=== PATIENT | female | born 1990 | race Caucasian/White ===

== ENCOUNTER 2021-01-10 12:11 | Emergency (ER) | payer OTHER, SELFPAY ==
--- NOTE | ~2021-01-10 | XR_ITS ---
EXAMINATION: XR CHEST CLINICAL INFORMATION: Coughing COMPARISON: None TECHNIQUE: Portable upright AP view of the chest was obtained. FINDINGS: There are low lung volumes with inspiration to the posterior eighth intercostal space. The lungs are clear and there is no airspace consolidation or groundglass opacity or effusion. The costophrenic sulci are clear. The heart is normal in size. The vascularity is normal. The hilar and mediastinal contours are unremarkable. No visible acute bony abnormality. There are bilateral nipple piercings. XR/XR chest 1V IMPRESSION: Unremarkable examination.
[2021-01-10 12:53] VITALS: BP 106/69; PULSE 86; RESP 20; TEMP 37.1; O2SAT 100; BMI 43.4
--- NOTE | 2021-01-10 12:54 | ED_ITS ---
HPI - URI/Sore Throat General Chief Complaint: Upper Respiratory Symptoms Stated Complaint: cough fever Time Seen by Provider: 01/10/21 12:53 Related Data Allergies Allergy/AdvReac Type Severity Reaction Status Date / Time morphine [MORPHINE] Allergy Unknown I DONT Unverified 02/19/20 19:01 KNOW WHAT IM SAYING PMFSH Past Medical History Medical History Morbid obesity Social History Social History Advance Directives: No Advance Directives Information Provided: No Patient : No Physical Exam Vital Signs: Vital Signs: Last Vital Signs Temp 98.8 F 01/10/21 12:53 Pulse 86 01/10/21 12:53 Resp 20 01/10/21 12:53 BP 106/69 01/10/21 12:53 Pulse Ox 100 01/10/21 12:53 Body Mass Index 43.4 Course Course Course Narrative: patient presents to the ED for coughing for one week, sore throat, and fever. patient vaccinated against covid. Vital signs are stable. Covid swab/strep and chest xray ordered. MDM - URI/Sore Throat Lab Data Labs: Lab Results 01/10/21 01/10/21 Range/Units 12:52 12:54 Coronavirus (PCR) NEGATIVE (Negative) Influenza Type A (PCR) NEGATIVE (Negative) Influenza Type B (PCR) NEGATIVE (Negative) RSV RNA Qual (PCR) NEGATIVE (Negative) S. pyogenes GrpA CODY Positive A (Negative) Discharge Plan Discharge Clinical Impression: Upper respiratory infection Patient Disposition: Home, Self-Care Instructions: Upper Respiratory Infection (ED), COVID-19 (Coronavirus Disease 2019) (ED) Additional Instructions: Strict home quarantine for at least 1 week from the onset of symptoms. Please stay home until there is no fever for at least 24-48 hours. Referrals: Physician,Unknown [Primary Care Provider] - 2 days Stand Alone Forms: Work/School Release Interventions: ED Discharge Assessment Last Done: 01/10/21 13:45 Discharge Date/Time: 01/10/21 13:40 Print Language: New Zealander
--- NOTE | 2021-01-10 13:19 | ED.URI ---
HPI - URI/Sore Throat General Chief Complaint: Upper Respiratory Symptoms Stated Complaint: cough fever Time Seen by Provider: 01/10/21 12:53 History of Present Illness HPI Narrative: Patient is 30 years old presents today with coughing upper respiratory symptoms. Patient already had her coronavirus vaccine x2 over 2 months ago. No nausea no vomiting. No diarrhea. No change in smell or taste. Patient from home. Related Data Allergies Allergy/AdvReac Type Severity Reaction Status Date / Time morphine [MORPHINE] Allergy Unknown I DONT Unverified 02/19/20 19:01 KNOW WHAT IM SAYING Review of Systems Review of Systems: Constitutional: No Weight loss, No Fever, No Chills, No Night Sweats, No Fatigue, No Malaise ENT/Mouth: No Hearing loss, No Ear Pain, No Nasal Congestion, No Sinus Pain, No Hoarseness, No sore throat, No Rhinorrhea, No Swallowing Difficulty Eyes: No Eye Pain, No Swelling, No Redness, No Foreign Body, No Discharge, No Vision Changes Cardiovascular: No Chest Pain, No SOB, No Dyspnea on Exertion, No Orthopnea, No Edema, No Palpitations Respiratory: Positive cough positive upper respiratory symptoms positive congestion Gastrointestinal: No Nausea, No Vomiting, No Diarrhea, No Constipation, No abdominal Pain, No Hematochezia, No Melena Genitourinary: no irregular bleeding, No Dysuria, No Urinary Frequency, No Hematuria, No Urinary Incontinence, No Urgency, No Flank Pain, No Urinary Flow Changes, No Hesitancy Musculoskeletal: No joint pain, No Myalgias, No Joint Swelling Skin: No Skin Lesions, No rash Neuro: No Weakness, No Numbness, No Paresthesias, No Loss of Consciousness, No Dizziness, No Headache Psych: No Anxiety/Panic, No Depression, No SI/HI/AH/VH, No Social Issues, Heme/Lymph: No Bruising, No Bleeding,No Lymphadenopathy Endocrine: No Polyuria, No Polydipsia, No Temperature Intolerance PMFSH Past Medical History Attestation statement: The following information was validated with the patient. Medical History Morbid obesity Social History Social History Advance Directives: No Advance Directives Information Provided: No Patient : No Physical Exam Vital Signs: Vital Signs: Last Vital Signs Temp 98.8 F 01/10/21 12:53 Pulse 86 01/10/21 12:53 Resp 20 01/10/21 12:53 BP 106/69 01/10/21 12:53 Pulse Ox 100 01/10/21 12:53 Body Mass Index 43.4 Appearance: Alert. Oriented X3. No acute distress. Eyes: Pupils equal, round and reactive to light. ENT: Pharynx normal. Neck: Normal inspection. Neck supple. No lymph nodes noted. No crepitus CVS: Normal heart rate and rhythm. Pulses normal. Normal S1 and S2 Respiratory: No respiratory distress. Breath sounds normal. No Wheezing. No rales Abdomen: Soft and nontender. No rigidity. No distention. good BS x4 Skin: Skin warm and dry. Normal skin color. Normal skin turgor. Extremities: No lower extremity edema. Neurovascular intact to all extremities. No Lacerations. No Rash Neuro: Oriented X 3. No motor deficit. No sensory deficit. Moving all extermities. No slurred speech MDM - URI/Sore Throat MDM Narrative Medical decision making narrative: Well-appearing O2 sat 100% on room air chest x-ray negative for any evidence of infiltrate. Patient's COVID test is pending. Either way will require home isolation. Close follow-up outpatient basis. Discharge Plan Discharge Clinical Impression: Upper respiratory infection Patient Disposition: Home, Self-Care Instructions: COVID-19 (Coronavirus Disease 2019) (ED), Upper Respiratory Infection (ED) Additional Instructions: Strict home quarantine for at least 1 week from the onset of symptoms. Please stay home until there is no fever for at least 24-48 hours. Referrals: Physician,Unknown [Primary Care Provider] - 2 days Stand Alone Forms: Work/School Release Print Language: Nepali
[2021-01-10 13:26] LABS: Strep A Nucleic Acid Positive (Negative)
[2021-01-10 13:38] LABS: Influenza A PCR NEGATIVE (Negative); Influenza B PCR NEGATIVE (Negative); Resp Syncy Virus RNA Qual PCR NEGATIVE (Negative); SARS COV2 PCR INHOUSE NEGATIVE (Negative)
== END 2021-01-10 13:40 | disposition home or self-care (01) ==
PROVIDERS: Emergency Provider Emergency Medicine Emergency Medical Services
DX: J06.9 Acute upper respiratory infection, unspecified (principal); R05 Cough; R50.9 Fever, unspecified
CPT/HCPCS: 0241U; 36415; 71045; 87651; 99283

== ENCOUNTER 2021-03-06 15:07 | Emergency (ER) | payer OTHER, SELFPAY ==
[2021-03-06 17:50] VITALS: BP 143/84; PULSE 81; RESP 18; TEMP 36.8; O2SAT 100; BMI 89.0
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
== END 2021-03-06 19:27 | disposition home or self-care (01) ==
PROVIDERS: Emergency Provider Emergency Medicine Emergency Medical Services
DX: S16.1XXA Strain of muscle, fascia and tendon at neck level, initial encounter (principal); S13.4XXA Sprain of ligaments of cervical spine, initial encounter; G44.309 Post-traumatic headache, unspecified, not intractable; M54.2 Cervicalgia; V43.52XA Car driver injured in collision with other type car in traffic accident, initial encounter; Y93.9 Activity, unspecified; Y92.410 Unspecified street and highway as the place of occurrence of the external cause; Y99.9 Unspecified external cause status; Z79.899 Other long term (current) drug therapy
CPT/HCPCS: 99283

== ENCOUNTER 2021-11-26 01:31 | Emergency (ER) | payer OTHER, SELFPAY ==
--- NOTE | 2021-11-26 | ECG_ITS ---
Test Reason : CHEST PRESSURE Blood Pressure : / mmHG Vent. Rate : 097 BPM Atrial Rate : 097 BPM P-R Int : 110 ms QRS Dur : 078 ms QT Int : 356 ms P-R-T Axes : 011 -11 009 degrees QTc Int : 452 ms Sinus rhythm with short FL Minimal voltage criteria for LVH, may be normal variant ( R in aVL ) Borderline ECG No previous ECGs available Referred By: Generic ED Physician Electronically Signed By:SHELLEY DANIELLE MD
--- NOTE | ~2021-11-26 | XR_ITS ---
EXAMINATION: XR CHEST CLINICAL INFORMATION: Shortness of breath. Rule out pneumonia. COMPARISON: Chest radiograph 01/10/2021 TECHNIQUE: Frontal view of the chest was obtained. FINDINGS: Normal appearance of the cardiomediastinal structures. No effusions or pneumothoraces. Normal pattern of pulmonary vasculature. No focal pulmonary consolidation. XR/XR chest 1V IMPRESSION: *No acute cardiopulmonary abnormalities.
[2021-11-26 01:36] VITALS: BP 139/76; PULSE 87; RESP 22; TEMP 36.9; O2SAT 100; BMI 43.6
[2021-11-26 01:52] LABS: MANUAL DIFF FLAG NO
[2021-11-26 01:57] LABS: Basophils Absolute Auto 0.1 X10*3/uL (0.0-0.2); Basophils Percent Auto 0.7 % (0-2); Eosinophils Absolute Auto 0.1 X10*3/uL (0.0-0.4); Eosinophils Percent Auto 1.5 % (0-4); Hematocrit 38.8 % (37.0-47.0); Hemoglobin 12.4 g/dl (12.0-16.0); Imm Gran Abs Auto 0.04 X10*3/uL (0.00-0.03); Imm Gran Pct Auto 0.4 % (0.0-0.4); Lymphocytes Absolute Auto 2.6 X10*3/uL (1.2-4.9); Lymphocytes Percent Auto 28.3 % (20-40); Mean Corpuscular Volume 78.2 fL (80.0-98.0); Mean Platelet Volume 11.1 fL (9.4-12.3); Monocytes Absolute Auto 0.7 X10*3/uL (0.1-1.2); Monocytes Percent Auto 7.3 % (2-11); Neutrophils Absolute Auto 5.7 x10*3/uL (2.0-8.3); Neutrophils Percent Auto 61.8 % (45-73); Platelet Count 260 X10*3/uL (160-400); Red Blood Count 4.96 X10*6/uL (4.20-5.50); Red Cell Distribution Width 13.4 % (11.0-16.0); White Blood Count 9.2 X10*3/uL (4.8-10.8)
[2021-11-26 02:00] VITALS: BP 125/74; PULSE 89; RESP 16; TEMP 36.9; O2SAT 100
--- NOTE | 2021-11-26 02:01 | PC.NURSE ---
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
[2021-11-26 02:16] LABS: Alanine Aminotransferase 20 U/L (0-31); Albumin Level 4.2 g/dL (3.5-5.0); Alkaline Phosphatase 58 U/L (39-117); Anion Gap 12 (12-20); Aspartate Amino Transferase 20 U/L (5-31); Bilirubin Total 0.2 mg/dL (0.0-1.0); Blood Urea Nitrogen 20 mg/dL (9-16); COVID-19 Test Negative (Negative); Calcium 8.6 mg/dL (8.4-10.2); Carbon Dioxide 23 mmol/L (22-29); Chloride 107 mmol/L (96-108); Creatinine Clr Calc Pharmacy 100.9; Estimated Glomerular Filt Rate > 60; Glucose Random 113 mg/dL (60-115); IDNOW Serial# 16C4AD1C; Influenza A Negative (Negative); Influenza B2 Negative (Negative); Potassium 3.8 mmol/L (3.3-5.1); Sodium 138 mmol/L (135-145); Total Protein 7.7 g/dL (6.5-8.0)
[2021-11-26 02:17] LABS: Troponin-I High Sensitivity < 3.5 ng/L (<3.5-17.0)
--- NOTE | 2021-11-26 02:26 | ED.CHESTPAIN ---
HPI - Chest Pain General Chief Complaint: Chest Pain Stated Complaint: cough congestion Time Seen by Provider: 11/26/21 01:38 Source: patient Mode of arrival: ambulatory Limitations: no limitations History of Present Illness HPI narrative: Patient comes to the emergency room complaining of cough for 4 days. Patient has not tried any [id number] medications for the cough, no fever or chills, no chest pain or shortness of breath. Related Data Previous Rx's Medication Instructions Recorded cyclobenzaprine 10 mg tablet 10 mg PO TID PRN muscle spasm #10 03/06/21 tabs ibuprofen 600 mg tablet 600 mg PO Q8H PRN pain #14 tabs 03/06/21 lidocaine 5 % topical patch 1 patch topical DAILY #15 ea 03/06/21 (Lidoderm) benzonatate 100 mg capsule 100 mg PO TID PRN cough #14 caps 11/26/21 Allergies Allergy/AdvReac Type Severity Reaction Status Date / Time morphine [MORPHINE] Allergy Unknown I DONT Verified 03/06/21 17:49 KNOW WHAT IM SAYING Review of Systems Review of Systems: Constitutional : No Weight loss, No Fever, No Chills, No Night Sweats, No Fatigue, No Malaise ENT/Mouth : No Hearing loss, No Ear Pain, No Nasal Congestion, No Sinus Pain, No Hoarseness, No sore throat, No Rhinorrhea, No Swallowing Difficulty Eyes: No Eye Pain, No Swelling, No Redness, No Foreign Body, No Discharge, No Vision Changes Cardiovascular : No Chest Pain, No SOB, No Dyspnea on Exertion, No Orthopnea, No Edema, No Palpitations Respiratory : Complaining of dry cough, No Sputum, No Wheezing, No Smoke Exposure, No Dyspnea Gastrointestinal : No Nausea, No Vomiting, No Diarrhea, No Constipation, No abdominal Pain, No Hematochezia, No Melena Genitourinary : no irregular bleeding, No Dysuria, No Urinary Frequency, No Hematuria, No Urinary Incontinence, No Urgency, No Flank Pain, No Urinary Flow Changes, No Hesitancy Musculoskeletal : No joint pain, No Myalgias, No Joint Swelling Skin : No Skin Lesions, No rash Neuro : No Weakness, No Numbness, No Paresthesias, No Loss of Consciousness, No Dizziness, No Headache Psych : No Anxiety/Panic, No Depression, No SI/HI/AH/VH, No Social Issues, Heme/Lymph: No Bruising, No Bleeding,No Lymphadenopathy Endocrine : No Polyuria, No Polydipsia, No Temperature Intolerance [facility] Past Medical History Medical History Morbid obesity Social History Social History Advance Directives: No Physical Exam Vital Signs: Vital Signs: Last Vital Signs Temp 98.5 F 11/26/21 02:00 Pulse 89 11/26/21 02:00 Resp 16 11/26/21 02:00 BP 125/74 11/26/21 02:00 Pulse Ox 100 11/26/21 02:00 O2 Del Method 11/26/21 02:00 BMI result Body Mass Index 43.6 Const: Other: Appearance: Alert. Oriented X3. No acute distress. Eyes: Pupils equal, round and reactive to light. ENT: Pharynx normal. Neck: Normal inspection. Neck supple. No lymph nodes noted. No crepitus CVS: Normal heart rate and rhythm. Pulses normal. Normal S1 and S2 Respiratory: No respiratory distress. Breath sounds normal. No Wheezing. No rales Abdomen: Soft and nontender. No rigidity. No distention. Skin: Skin warm and dry. Normal skin color. Normal skin turgor. Extremities: No lower extremity edema. No Lacerations. No Rash Neuro: Oriented X 3. No motor deficit. No sensory deficit. Moving all extremities. No slurred speech. CN 2 through 12 grossly intact Psych: calm, cooperative, normal affect Course Course Course Narrative: Patient is well, chest x-ray unremarkable, negative for COVID and influenza. Patient likely has viral bronchitis. MDM - Chest Pain Lab Data Result diagrams: 11/26/21 01:47 11/26/21 01:47 Labs: Lab Results 11/26/21 11/26/21 11/26/21 Range/Units 01:47 01:47 01:47 WBC 9.2 (4.8-10.8) X10*3/uL RBC 4.96 (4.20-5.50) X10*6/uL Hgb 12.4 (12.0-16.0) g/dl Hct 38.8 (37.0-47.0) % MCV 78.2 L (80.0-98.0) fL MCH 25.0 L (27.0-33.0) pg MCHC 32.0 (31.0-35.0) g/dl RDW 13.4 (11.0-16.0) % Plt Count 260 (160-400) X10*3/uL MPV 11.1 (9.4-12.3) fL Immature Gran % (Auto) 0.4 (0.0-0.4) % Neut % (Auto) 61.8 (45-73) % Lymph % (Auto) 28.3 (20-40) % [place] % (Auto) 7.3 (2-11) % Eos % (Auto) 1.5 (0-4) % Baso % (Auto) 0.7 (0-2) % Lymph # (Auto) 2.6 (1.2-4.9) X10*3/uL [place] # (Auto) 0.7 (0.1-1.2) X10*3/uL Eos # (Auto) 0.1 (0.0-0.4) X10*3/uL Baso # (Auto) 0.1 (0.0-0.2) X10*3/uL Abs Immat Gran (auto) 0.04 H (0.00-0.03) X10*3/uL Absolute Neuts (auto) 5.7 (2.0-8.3) x10*3/uL Absolute Nucleated RBC 0.000 (0.0-0.012) X10*3/uL Nucleated RBC % (auto) 0.0 (0.0-0.2) /100WBC Sodium (135-145) mmol/L Potassium (3.3-5.1) mmol/L Chloride (96-108) mmol/L Carbon Dioxide (22-29) mmol/L Anion Gap (12-20) BUN (9-16) mg/dL Creatinine (0.5-1.4) mg/dL Estim Creat Clear Calc Estimated GFR Random Glucose (60-115) mg/dL Calcium (8.4-10.2) mg/dL Total Bilirubin (0.0-1.0) mg/dL AST (5-31) U/L ALT (0-31) U/L Alkaline Phosphatase (39-117) U/L Troponin I High Sens (<3.5-17.0) ng/L Total Protein (6.5-8.0) g/dL Albumin (3.5-5.0) g/dL COVID-19 (FUENTES) Negative (Negative) COVID-19 Clin Com See Note Influenza Type A (CODY) Negative (Negative) Influenza Type B (CODY) Negative (Negative) Influenza A & B Note See Note 11/26/21 11/26/21 Range/Units 01:47 01:47 WBC (4.8-10.8) X10*3/uL RBC (4.20-5.50) X10*6/uL Hgb (12.0-16.0) g/dl Hct (37.0-47.0) % MCV (80.0-98.0) fL MCH (27.0-33.0) pg MCHC (31.0-35.0) g/dl RDW (11.0-16.0) % Plt Count (160-400) X10*3/uL MPV (9.4-12.3) fL Immature Gran % (Auto) (0.0-0.4) % Neut % (Auto) (45-73) % Lymph % (Auto) (20-40) % [place] % (Auto) (2-11) % Eos % (Auto) (0-4) % Baso % (Auto) (0-2) % Lymph # (Auto) (1.2-4.9) X10*3/uL [place] # (Auto) (0.1-1.2) X10*3/uL Eos # (Auto) (0.0-0.4) X10*3/uL Baso # (Auto) (0.0-0.2) X10*3/uL Abs Immat Gran (auto) (0.00-0.03) X10*3/uL Absolute Neuts (auto) (2.0-8.3) x10*3/uL Absolute Nucleated RBC (0.0-0.012) X10*3/uL Nucleated RBC % (auto) (0.0-0.2) /100WBC Sodium 138 (135-145) mmol/L Potassium 3.8 (3.3-5.1) mmol/L Chloride 107 (96-108) mmol/L Carbon Dioxide 23 (22-29) mmol/L Anion Gap 12 (12-20) BUN 20 H (9-16) mg/dL Creatinine 0.83 (0.5-1.4) mg/dL Estim Creat Clear Calc 100.9 Estimated GFR > 60 Random Glucose 113 (60-115) mg/dL Calcium 8.6 (8.4-10.2) mg/dL Total Bilirubin 0.2 (0.0-1.0) mg/dL AST 20 (5-31) U/L ALT 20 (0-31) U/L Alkaline Phosphatase 58 (39-117) U/L Troponin I High Sens < 3.5 (<3.5-17.0) ng/L Total Protein 7.7 (6.5-8.0) g/dL Albumin 4.2 (3.5-5.0) g/dL COVID-19 (FUENTES) (Negative) COVID-19 Clin Com Influenza Type A (CODY) (Negative) Influenza Type B (CODY) (Negative) Influenza A & B Note Imaging Data Chest x-ray: Radiologist's impression: There are low lung volumes with inspiration to the posterior eighth intercostal space. The lungs are clear and there is no airspace consolidation or groundglass opacity or effusion. The costophrenic sulci are clear. The heart is normal in size. The vascularity is normal. The hilar and mediastinal contours are unremarkable. No visible acute bony abnormality. There are bilateral nipple piercings. XR/XR chest 1V IMPRESSION: Unremarkable examination. Discharge Plan Discharge Clinical Impression: Acute viral bronchitis Patient Disposition: Home, Self-Care Instructions: Acute Bronchitis (ED) Additional Instructions: Please follow-up with your primary care physician tomorrow. If you have any worsening or new symptoms, please return to the emergency room or call 911 Prescriptions: New benzonatate 100 mg capsule 100 mg PO TID PRN (Reason: cough) Qty: 14 0RF No Action cyclobenzaprine 10 mg tablet 10 mg PO TID PRN (Reason: muscle spasm) Qty: 10 0RF ibuprofen 600 mg tablet 600 mg PO Q8H PRN (Reason: pain) Qty: 14 0RF lidocaine [Lidoderm] 5 % adhesive patch,medicated 1 patch topical DAILY Qty: 15 0RF Rx Instructions: leave on most painful area for up to 12 hrs
== END 2021-11-26 02:53 | disposition home or self-care (01) ==
PROVIDERS: Emergency Provider Emergency Medicine
DX: J20.8 Acute bronchitis due to other specified organisms (principal); R07.89 Other chest pain; R05.9 Cough, unspecified; Z20.822 Contact with and (suspected) exposure to COVID-19; Z79.899 Other long term (current) drug therapy
CPT/HCPCS: 36415; 71045; 80053; 84484; 85025; 87502; 87635; 93005; 99283

== ENCOUNTER 2022-05-20 05:31 | Emergency (ER) | payer OTHER, SELFPAY ==
--- NOTE | ~2022-05-20 | XR_ITS ---
EXAMINATION: XR CHEST CLINICAL INFORMATION: Rule out pneumonia. Pain COMPARISON: Chest radiograph 11/26/2021. TECHNIQUE: Frontal view of the chest was obtained. FINDINGS: No significant abnormality is noted involving the heart, lungs, mediastinum, bony thorax or soft tissues. XR/XR chest 1V IMPRESSION: Unremarkable examination.
[2022-05-20 05:39] VITALS: BP 142/87; PULSE 90; RESP 20; TEMP 36.8; O2SAT 96; BMI 44.4
[2022-05-20 05:44] VITALS: BP 142/87; PULSE 92; RESP 20; TEMP 37; O2SAT 95
--- NOTE | 2022-05-20 05:47 | PC.NURSE ---
Pt's V/S are stable, pt is a/o x4 and independent. Pt reports able to tolerate food and liquids, no fever and no other s/s.
--- NOTE | 2022-05-20 05:54 | ED.URI ---
HPI - URI/Sore Throat General Chief Complaint: Upper Respiratory Symptoms Stated Complaint: flu symptoms Time Seen by Provider: 05/20/22 05:45 Source: patient Mode of arrival: ambulatory Limitations: no limitations History of Present Illness HPI Narrative: Patient comes to the emergency room complaining of sore throat and coughing for 3 weeks. Patient states that a month ago, she had URI symptoms, tested negative for COVID, started getting better but shortly after starting worsening again. Patient's younger sister is here with similar symptoms for the same duration. Related Data Previous Rx's Medication Instructions Recorded cyclobenzaprine 10 mg tablet 10 mg PO TID PRN muscle spasm #10 03/06/21 tabs ibuprofen 600 mg tablet 600 mg PO Q8H PRN pain #14 tabs 03/06/21 lidocaine 5 % topical patch 1 patch topical DAILY #15 ea 03/06/21 (Lidoderm) benzonatate 100 mg capsule 100 mg PO TID PRN cough #14 caps 11/26/21 benzonatate 100 mg capsule 100 mg PO TID PRN cough #14 caps 05/20/22 Allergies Allergy/AdvReac Type Severity Reaction Status Date / Time morphine [MORPHINE] Allergy Unknown I DONT Verified 03/06/21 17:49 KNOW WHAT IM SAYING Review of Systems Review of Systems: Constitutional : No Weight loss, No Fever, No Chills, No Night Sweats, complaining of fatigue and generalized malaise ENT/Mouth : No Hearing loss, No Ear Pain, No Nasal Congestion, No Sinus Pain, No Hoarseness, complaining of sore throat, No Rhinorrhea, No Swallowing Difficulty Eyes: No Eye Pain, No Swelling, No Redness, No Foreign Body, No Discharge, No Vision Changes Cardiovascular : No Chest Pain, No SOB, No Dyspnea on Exertion, No Orthopnea, No Edema, No Palpitations Respiratory : Complaining of dry Cough, No Sputum, No Wheezing, No Smoke Exposure, No Dyspnea Gastrointestinal : No Nausea, No Vomiting, No Diarrhea, No Constipation, No abdominal Pain, No Hematochezia, No Melena Genitourinary : no irregular bleeding, No Dysuria, No Urinary Frequency, No Hematuria, No Urinary Incontinence, No Urgency, No Flank Pain, No Urinary Flow Changes, No Hesitancy Musculoskeletal : No joint pain, No Myalgias, No Joint Swelling Skin : No Skin Lesions, No rash Neuro : No Weakness, No Numbness, No Paresthesias, No Loss of Consciousness, No Dizziness, No Headache Psych : No Anxiety/Panic, No Depression, No SI/HI/AH/VH, No Social Issues, Heme/Lymph: No Bruising, No Bleeding,No Lymphadenopathy Endocrine : No Polyuria, No Polydipsia, No Temperature Intolerance PMF Past Medical History Medical History Morbid obesity Social History Social History Smoked in Last 30 Days: No Use of substances other than those prescribed or required for medical reasons: No Advance Directives: No Advance Directives Information Provided: Yes Patient : No Physical Exam Vital Signs: Vital Signs: Last Vital Signs Temp 98.6 F 05/20/22 05:44 Pulse 92 05/20/22 05:44 Resp 20 05/20/22 05:44 BP 142/87 H 05/20/22 05:44 Pulse Ox 95 05/20/22 05:44 O2 Del Method 05/20/22 05:44 BMI result Body Mass Index 44.4 Const: Other: Appearance: Alert. Oriented X3. No acute distress. Eyes: Pupils equal, round and reactive to light. ENT: Pharynx normal. Neck: Normal inspection. Neck supple. No lymph nodes noted. No crepitus CVS: Normal heart rate and rhythm. Pulses normal. Normal S1 and S2 Respiratory: No respiratory distress. Breath sounds normal. No Wheezing. No rales Abdomen: Soft and nontender. No rigidity. No distention. Skin: Skin warm and dry. Normal skin color. Normal skin turgor. Extremities: No lower extremity edema. No Lacerations. No Rash Neuro: Oriented X 3. No motor deficit. No sensory deficit. Moving all extremities. No slurred speech. CN 2 through 12 grossly intact Psych: calm, cooperative, normal affect Course Course Course Narrative: Patient's serology and chest x-rays pending. X-rays negative for any acute pathology. Patient likely has chronic viral bronchitis. Medical Decision Making Differential Diagnosis Differential Diagnoses: The differential diagnosis associated with the presentation includes (Bronchitis, pneumonia, COVID, influenza) Lab Data MDM Lab Attestation statement: I reviewed the patient's lab results. Independent Interpretation I performed an independent interpretation of an: Plain X-Ray (Interpretation of the x-ray is no acute findings) Radiology Impression Discussion of test interpretation with radiology: I have reviewed the radiologist's reading. Radiologist Impression: FINDINGS: No significant abnormality is noted involving the heart, lungs, mediastinum, bony thorax or soft tissues. XR/XR chest 1V IMPRESSION: Unremarkable examination. Discharge Plan Discharge Clinical Impression: Acute viral bronchitis Patient Disposition: Home, Self-Care Instructions: Acute Bronchitis (ED) Additional Instructions: Please follow-up with your primary care physician tomorrow. If you have any worsening or new symptoms, please return to the emergency room or call 911 Prescriptions: New benzonatate 100 mg capsule 100 mg PO TID PRN (Reason: cough) Qty: 14 0RF No Action cyclobenzaprine 10 mg tablet 10 mg PO TID PRN (Reason: muscle spasm) Qty: 10 0RF ibuprofen 600 mg tablet 600 mg PO Q8H PRN (Reason: pain) Qty: 14 0RF lidocaine [Lidoderm] 5 % adhesive patch,medicated 1 patch topical DAILY Qty: 15 0RF Rx Instructions: leave on most painful area for up to 12 hrs benzonatate 100 mg capsule 100 mg PO TID PRN (Reason: cough) Qty: 14 0RF
[2022-05-20 07:05] LABS: Influenza A PCR NEGATIVE (Negative); Influenza B PCR NEGATIVE (Negative); Resp Syncy Virus RNA Qual PCR NEGATIVE (Negative); SARS COV2 PCR INHOUSE POSITIVE (Negative)
[2022-05-20 07:08] VITALS: BP 154/92; PULSE 89; RESP 16; TEMP 37.4
== END 2022-05-20 07:54 | disposition home or self-care (01) ==
PROVIDERS: Emergency Provider Emergency Medicine; PCP Internal Medicine
DX: U07.1 COVID-19 (principal); J20.8 Acute bronchitis due to other specified organisms; E66.01 Morbid (severe) obesity due to excess calories; Z68.41 Body mass index [BMI] 40.0-44.9, adult
CPT/HCPCS: 0241U; 71045; 99283; 99284

== ENCOUNTER 2023-07-04 15:49 | Emergency (ER) | payer OTHER, SELFPAY ==
--- NOTE | ~2023-07-04 | XR_ITS ---
EXAMINATION: Thoracic and lumbar spine. CLINICAL HISTORY: Back pain. TECHNIQUE: Thoracic spine 3 views. Lumbar spine 3 views. FINDINGS: THORACIC SPINE: There is normal thoracic kyphosis. The vertebral heights, alignment and disc heights are normal. No visible acute fracture, dislocation or subluxation seen. LUMBAR SPINE: There is normal lumbar lordosis. The vertebral heights, alignment and disc heights are normal. No visible acute fracture, dislocation or lytic process seen. The paravertebral soft tissues are normal. SI joints are normal. XR/XR thoracic spine 3V IMPRESSION: Unremarkable dorsal and lumbar spine exam. No visible acute fracture, dislocation or lytic process seen. The SI joints are normal.
--- NOTE | ~2023-07-04 | XR_ITS ---
EXAMINATION: Thoracic and lumbar spine. CLINICAL HISTORY: Back pain. TECHNIQUE: Thoracic spine 3 views. Lumbar spine 3 views. FINDINGS: THORACIC SPINE: There is normal thoracic kyphosis. The vertebral heights, alignment and disc heights are normal. No visible acute fracture, dislocation or subluxation seen. LUMBAR SPINE: There is normal lumbar lordosis. The vertebral heights, alignment and disc heights are normal. No visible acute fracture, dislocation or lytic process seen. The paravertebral soft tissues are normal. SI joints are normal. XR/XR lumbar spine 2-3V IMPRESSION: Unremarkable dorsal and lumbar spine exam. No visible acute fracture, dislocation or lytic process seen. The SI joints are normal.
[2023-07-04 15:51] VITALS: BP 130/92; PULSE 64; O2SAT 96
[2023-07-04 15:53] VITALS: BP 158/87; PULSE 82; RESP 16; TEMP 35.9; O2SAT 99; BMI 49.4
--- NOTE | 2023-07-04 15:55 | ED_ITS ---
HPI - General Adult General Chief complaint: Back Pain/Injury Stated complaint: back pain Time Seen by Provider: 07/04/23 17:50 Source: patient Mode of arrival: ambulatory Limitations: no limitations History of Present Illness HPI narrative: This is a 32-year-old female history of obesity presenting to the emergency department with complaints of lower back pain status post heavy lifting at work ( works at [employer]). Patient reports she was recently lifting some heavy boxes, unclear exactly how much they weighed around 40-45 lbs. She reports that pain is worse with movement and better at rest at times goes to her b/l le above the knee. Denies numbness or tingling. No previous issues with her back. Denies fevers, chills, chest pain, shortness of breath, urinary/bowel incontinence/retention, saddle paresthesias, weakness. No reported blunt trauma Related Data Previous Rx's Medication Instructions Recorded cyclobenzaprine 10 mg tablet 10 mg PO TID PRN muscle spasm #10 03/06/21 tabs ibuprofen 600 mg tablet 600 mg PO Q8H PRN pain #14 tabs 03/06/21 lidocaine 5 % topical patch 1 patch topical DAILY #15 ea 03/06/21 (Lidoderm) benzonatate 100 mg capsule 100 mg PO TID PRN cough #14 caps 11/26/21 benzonatate 100 mg capsule 100 mg PO TID PRN cough #14 caps 05/20/22 ketorolac 10 mg tablet 10 mg PO TID PRN pain 5 days #15 07/04/23 tabs lidocaine 5 % topical patch 1 patch topical DAILY PRN pain #15 07/04/23 ea prednisone 20 mg tablet 20 mg PO DAILY 5 days #5 tabs 07/04/23 Allergies Allergy/AdvReac Type Severity Reaction Status Date / Time morphine [MORPHINE] Allergy Unknown I DONT Verified 03/06/21 17:49 KNOW WHAT IM SAYING Review of Systems Review of Systems: Constitutional : No Weight loss, No Fever, No Chills, ENT/Mouth : No Hearing loss, No Ear Pain, No Nasal Congestion, No Sinus Pain, No Hoarseness, No sore throat, No Rhinorrhea, No Swallowing Difficulty Cardiovascular : No Chest Pain, No SOB Respiratory : No Cough, No Dyspnea Gastrointestinal : No Nausea, No Vomiting, No Diarrhea, No abdominal Pain, No Hematochezia, No Melena Genitourinary : No Dysuria, No Urinary Frequency, No Hematuria, No Urinary Incontinence, Musculoskeletal : positive back pain Skin : No Skin Lesions, No rash Neuro : No Weakness, No Numbness, No Paresthesias, no loss of bowel or bladder incontinence, no saddle anesthesia Yes all other systems are reviewed and are negative [facility] Past Medical History Attestation statement: The following information was validated with the patient. Source: old records reviewed and nursing notes reviewed Medical History Morbid obesity Social History Social History Advance Directives: No Advance Directives Information Provided: No Physical Exam ED Vital Signs: Vital Signs - 24 hr 07/04/23 15:53 Temperature 96.7 F L Pulse Rate 82 Respiratory Rate 16 Blood Pressure 158/87 H Pulse Oximetry 99 BMI result Body Mass Index 49.4 Vital signs stable Appearance: Alert.? Oriented X3.? No acute distress.? Head: Normocephalic, atraumatic, no step-offs or deformities Eyes: Pupils equal, round and reactive to light.? CVS: Normal heart rate and rhythm.? Pulses normal.? Respiratory: No respiratory distress.? Breath sounds normal.? Abdomen: Soft and nontender.? Skin: Skin warm and dry.? Normal skin color.? Normal skin turgor.? Extremities: No lower extremity edema.? No calf ttp. 5/5 strength to bilateral upper and lower extremities Back: No midline tenderness, no C-spine tenderness, full range of motion, no CVA tenderness + bilaterally there is paraspinous muscle spasm in the lumbar and thoracic region. Bilateral straight leg raise positive. Neuro: Oriented X 3.? No motor deficit.? No sensory deficit. CN 2-12 intact . No saddle paresthesias ambulating with steady gait normal coordination. Course Course Course Narrative: RME: 32 yold female presents to ED low back pain after heavy lifting of boxes. Has lumbar and thoraci spine tendernss on exam. Xrays ordered Reevaluation(s) Reevaluation #1: Unremarkable dorsal and lumbar spine exam. Normal SI joints. No acute fractures or dislocations. Patient will be given Toradol, Lidoderm patch and discharged home with PCP follow-up. Educated patient on diagnosis and treatment plan, answered all question, patient verbalizes understanding. At this time patient will be discharged home, advised to return with new or worsening symptoms. Educated on worrisome signs and symptoms and when to return. At this time I feel comfortable discharge home. Time: 17:55 Medications Administered Discontinued Medications Generic Name Dose Route Start Last Admin Trade Name Javi PRN Reason Stop Dose Admin Ketorolac Tromethamine 30 mg 07/04/23 17:56 07/04/23 18:07 Ketorolac Tromethamine 15 Mg/Ml Vial IM 07/04/23 17:57 30 mg ONCE ONE Administration Lidocaine 1 patch 07/04/23 17:56 07/04/23 18:07 Lidocaine 4 % Patch Adh..Patch TRANSDERMA 07/04/23 17:57 1 patch ONCE ONE Administration Protocol Medical Decision Making Medical Decision Making MDM Narrative: 32-year-old female presents with complaints of back pain status post heavy lifting Physical exam significant for + bilaterally there is paraspinous muscle spasm in the lumbar and thoracic region. Bilateral straight leg raise positive. History and physical exam concerning for lumbar/thoracic paraspinous muscle spasms versus herniated disc versus lumbar and thoracic radiculopathy. No signs of cord compression, cauda equina or epidural abscess. Other differentials include lumbago or muscle sprain or strain. Unlikely fracture dislocation. Plan at this time imaging ordered from triage. Will give Toradol and Lidoderm patch. Differential Diagnosis Differential Diagnoses: The differential diagnosis associated with the presentation includes History and physical exam concerning for lumbar/thoracic paraspinous muscle spasms versus herniated disc lumbar and thoracic radiculopathy. . No signs of cord compression, cauda equina or epidural abscess. Other differentials include lumbago or muscle sprain or strain. Unlikely fracture dislocation. Admission/Observation Consideration of admission/observation: Escalation of care including admission/observation considered Unlikely Independent Interpretation I performed an independent interpretation of an: Plain X-Ray (FINDINGS: THORACIC SPINE: There is normal thoracic kyphosis. The vertebral heights, alignment and disc heights are normal. No visible acute fracture, dislocation or subluxation seen. LUMBAR SPINE: There is normal lumbar lordosis. The vertebral heights, alignment and disc heights are normal. No visi) Radiology Impression Discussion of test interpretation with radiology: I have reviewed the radiologist's reading. External Record Review External record reviewed: Inpatient record, Office record, Outpatient record, Prior outpatient labs, Prior outpatient radiology, Primary care record and Outside ED record Tests considered The following testing was considered but not selected: Considered obtaining advanced imaging however no red flag symptoms no indication for CT or MRI. Prescription Management I considered prescription management with: Pain Medication Discharge Plan Discharge Clinical Impression: Thoracic back pain, Lumbar back pain Patient Disposition: Home, Self-Care Instructions: Thoracic Pain (ED), Back Pain (ED) Additional Instructions: Take your medications as prescribed. If you were prescribed antibiotics today, it is important that you take your medication to their entirety, do not skip any doses, do not finish them early. Follow-up with your primary care provider this week. Return to the emergency department with new or worsening symptoms. Such as fevers, chills, chest pain, shortness of breath, nausea, vomiting, dizziness, headache, vision changes, lethargy In case of emergency call 911 Toradol has been sent to your pharmacy, you tolerated this well in the department. Please take this as prescribed do not take this with ibuprofen, or other NSAIDs, do not mix this with alcohol. Side effects of this medication including increased risk for bleeding and possible kidney injury. FINDINGS: THORACIC SPINE: There is normal thoracic kyphosis. The vertebral heights, alignment and disc heights are normal. No visible acute fracture, dislocation or subluxation seen. LUMBAR SPINE: There is normal lumbar lordosis. The vertebral heights, alignment and disc heights are normal. No visible acute fracture, dislocation or lytic process seen. The paravertebral soft tissues are normal. SI joints are normal. [place] mickey medicamentos seg?n lo recetado. Si hoy te recetaron antibi?ticos, es importante que tomes tu medicaci?n en nguyen totalidad, no te saltes ninguna dosis, no las termines antes de tiempo. Baldev un seguimiento con nguyen proveedor de atenci?n primaria esta semana. Regrese al departamento de emergencias si los s?ntomas son nuevos o empeoran. Anderson fiebre, escalofr?os, dolor de pecho, dificultad para respirar, n?useas, v?mitos, mareos, dolor de javy, cambios en la visi?n, letargo. En tayler de emergencia llame al 911. Toradol [place] sido enviado a nguyen farmacia, lo hortencia? federico en el departamento. T?vega seg?n lo prescrito, no lo tome con ibuprofeno u otros ROSENDO, no lo mezcle con alcohol. Los efectos secundarios de richy medicamento incluyen un mayor riesgo de sangrado y posible lesi?n renal. RECOMENDACIONES: COLUMNA TOR?CICA: Hay cifosis tor?cica normal. la vertebral [place], la alineaci?n y las coqu[place] de los discos son normales. No sangeetha visible Se observa fractura, dislocaci?n o subluxaci?n. COLUMNA LUMBAR: Hay lordosis lumbar normal. [place] vertebrales, La alineaci?n y las coquille de los discos son normales. Sin fractura aguda visible, Se observa dislocaci?n o proceso l?elizabeth. Los tejidos blandos paravertebrales son normal. Las articulaciones SI son normales. Prescriptions: New ketorolac 10 mg tablet 10 mg PO TID PRN (Reason: pain) 5 Days Qty: 15 0RF prednisone 20 mg tablet 20 mg PO DAILY 5 Days Qty: 5 0RF lidocaine 5 % adhesive patch,medicated 1 patch topical DAILY PRN (Reason: pain) Qty: 15 0RF Rx Instructions: leave on most painful area for up to 12 hrs No Action cyclobenzaprine 10 mg tablet 10 mg PO TID PRN (Reason: muscle spasm) Qty: 10 0RF ibuprofen 600 mg tablet 600 mg PO Q8H PRN (Reason: pain) Qty: 14 0RF lidocaine [Lidoderm] 5 % adhesive patch,medicated 1 patch topical DAILY Qty: 15 0RF Rx Instructions: leave on most painful area for up to 12 hrs benzonatate 100 mg capsule 100 mg PO TID PRN (Reason: cough) Qty: 14 0RF benzonatate 100 mg capsule 100 mg PO TID PRN (Reason: cough) Qty: 14 0RF Referrals: [facility] [Provider Group] - 1 week Stand Alone Forms: Work/School Release Interventions: ED Discharge Assessment Last Done: 07/04/23 18:40 Discharge Date/Time: 07/04/23 18:46
[2023-07-04] MEDS: Ketorolac Tromethamine 15 MG/ML VIAL 30 MG IM (18:07)
[2023-07-04] MEDS: Lidocaine 4 % Patch ADH..PATCH 1 PATCH TRANSDERMA (18:07)
--- NOTE | 2023-07-04 18:09 | PC.NURSE ---
patient a&ox3, ambulates with steady gait, medicated for 8/10 middle low back pain, call woody within reach will continue to monitor
== END 2023-07-04 18:46 | disposition home or self-care (01) ==
PROVIDERS: Emergency Provider Emergency Medicine
DX: Z04.2 Encounter for examination and observation following work accident (principal); M54.50 Low back pain, unspecified; M54.6 Pain in thoracic spine
CPT/HCPCS: 72072; 72100; 96372; 99283; 99284; J1885

== ENCOUNTER 2023-07-10 17:31 | Emergency (ER) | payer OTHER, SELFPAY ==
[2023-07-10 17:57] VITALS: BP 177/100; PULSE 108; RESP 17; TEMP 36.8; O2SAT 95; BMI 49.4
--- NOTE | 2023-07-10 17:57 | ED.FEMALEGU ---
HPI - Female Genitourinary General Chief complaint: Urogenital-Female Stated complaint: excessive bleeding vaginal Time Seen by Provider: 07/10/23 21:32 History of Present Illness HPI Narrative: 32-year-old female who says that she started having menses 3 days ago. She says that this was not unexpected. However she has had heavier bleeding than usual and has been changing her pads very frequently. She has on no control or other hormonal medications. She has had no recent sexual intercourse. She has had no fever, sweats, chills. Has also had a headache. Related Data Previous Rx's Medication Instructions Recorded cyclobenzaprine 10 mg tablet 10 mg PO TID PRN muscle spasm #10 03/06/21 tabs ibuprofen 600 mg tablet 600 mg PO Q8H PRN pain #14 tabs 03/06/21 lidocaine 5 % topical patch 1 patch topical DAILY #15 ea 03/06/21 (Lidoderm) benzonatate 100 mg capsule 100 mg PO TID PRN cough #14 caps 11/26/21 benzonatate 100 mg capsule 100 mg PO TID PRN cough #14 caps 05/20/22 ketorolac 10 mg tablet 10 mg PO TID PRN pain 5 days #15 07/04/23 tabs lidocaine 5 % topical patch 1 patch topical DAILY PRN pain #15 07/04/23 ea prednisone 20 mg tablet 20 mg PO DAILY 5 days #5 tabs 07/04/23 Allergies Allergy/AdvReac Type Severity Reaction Status Date / Time morphine [MORPHINE] Allergy Unknown I DONT Verified 03/06/21 17:49 KNOW WHAT IM SAYING Review of Systems Review of Systems: Yes all other systems are reviewed and are negative [facility] Past Medical History Medical History Morbid obesity Social History Social History Advance Directives: No Advance Directives Information Provided: No Physical Exam Vital Signs: Vital Signs: Last Vital Signs Temp 98.2 F 07/10/23 22:09 Pulse 90 07/10/23 22:09 Resp 20 07/10/23 22:09 BP 140/82 H 07/10/23 22:09 Pulse Ox 99 07/10/23 22:09 O2 Del Method Room Air 07/10/23 22:09 BMI result Body Mass Index 49.4 Const: Other: The patient is awake, alert, pleasant, cooperative. She looks mildly uncomfortable but not acutely toxic. HEENT: Other: Face is symmetrical. Mucous membranes moist. Eyes: Other: Pupils are round equal, conjunctivae are clear, extraocular movements intact Neck: Other: Moving her neck easily Resp: Effort & Inspection: normal respiratory effort Auscultation: clear to auscultation bilaterally Cardio: Rate: regular rate Rhythm: regular rhythm Heart sounds: S1 normal heart sound present and S2 normal heart sound present GI: Other: The abdomen is soft. There is some mild left lower quadrant tenderness without rebound or guarding. Skin: Other: Skin is pale and dry Neuro: Other: The patient is awake, alert, oriented, appropriate, grossly neurologically intact. Extrem: Other: No peripheral edema, no calf swelling or tenderness Course Course Course Narrative: This is a rapid medical exam. Deferred additional HPI, ROS, PE to primary provider. 32 yo female here with complaints of heavy vaginal bleeding x 3 days, vaginal pain. Changing pads every 30 minutes. NO AC therapy use. Last menstrual cycle was irregular with spotting. Will obtain labs, UA, ur preg VSS Medications Administered Discontinued Medications Generic Name Dose Route Start Last Admin Trade Name Freq PRN Reason Stop Dose Admin Acetaminophen 975 mg 07/10/23 22:24 07/10/23 22:56 Acetaminophen 325 Mg Tablet PO 07/10/23 22:25 975 mg ONCE ONE Administration Ketorolac Tromethamine 60 mg 07/10/23 22:23 07/10/23 22:56 Ketorolac Tromethamine 60 Mg/2 Ml Vial IM 07/10/23 22:24 60 mg ONCE ONE Administration Medical Decision Making Medical Decision Making [facility] Narrative: The patient is a pleasant 32-year-old who describes heavy menstrual bleeding over the last 3 days associated with mild lower abdominal pain typical of menstrual discomfort and who also has a headache. Labs are unremarkable. Hemoglobin is stable. I do not have a very high suspicion for any acutely dangerous process. She was given an injection of ketorolac and a dose of Toradol and felt considerably better. Think she may be discharged to follow up with the regular doctor in her [employer]ene[employer] taper. Lab Data 07/10/23 18:37 07/10/23 18:37 Labs: Lab Results 02/06/24 Range/Units 18:37 WBC 7.0 (4.8-10.8) X10*3/uL RBC 5.33 (4.20-5.50) X10*6/uL Hgb 13.2 (12.0-16.0) g/dl Hct 41.8 (37.0-47.0) % MCV 78.4 L (80.0-98.0) fL MCH 24.8 L (27.0-33.0) pg MCHC 31.6 (31.0-35.0) g/dl RDW 14.0 (11.0-16.0) % Plt Count 242 (160-400) X10*3/uL MPV 10.8 (9.4-12.3) fL Immature Gran % (Auto) 0.6 H (0.0-0.4) % Neut % (Auto) 61.0 (45-73) % Lymph % (Auto) 27.1 (20-40) % [place] % (Auto) 8.1 (2-11) % Eos % (Auto) 2.3 (0-4) % Baso % (Auto) 0.9 (0-2) % Lymph # (Auto) 1.9 (1.2-4.9) X10*3/uL [place] # (Auto) 0.6 (0.1-1.2) X10*3/uL Eos # (Auto) 0.2 (0.0-0.4) X10*3/uL Baso # (Auto) 0.1 (0.0-0.2) X10*3/uL Abs Immat Gran (auto) 0.04 H (0.00-0.03) X10*3/uL Absolute Neuts (auto) 4.3 (2.0-8.3) x10*3/uL Absolute Nucleated RBC 0.000 (0.0-0.012) X10*3/uL Nucleated RBC % (auto) 0.0 (0.0-0.2) /100WBC PT 12.2 (11.1-13.3) SEC INR 1.0 (0.9-1.1) Sodium 141 (135-145) mmol/L Potassium 3.5 (3.3-5.1) mmol/L Chloride 106 (96-108) mmol/L Carbon Dioxide 26 (22-29) mmol/L Anion Gap 13 (12-20) BUN 10 (9-16) mg/dL Creatinine 0.75 (0.5-1.4) mg/dL Estim Creat Clear Calc 119.4 Estimated GFR > 60 Random Glucose 125 H (60-115) mg/dL Calcium 9.2 D (8.4-10.2) mg/dL Total Bilirubin 0.3 (0.0-1.0) mg/dL Direct Bilirubin 0.1 (0.0-0.5) mg/dL AST 40 H (5-31) U/L ALT 50 H (0-31) U/L Alkaline Phosphatase 75 (39-117) U/L Total Protein 8.3 H (6.5-8.0) g/dL Albumin 4.0 (3.5-5.0) g/dL Beta HCG, Quant < 2 mIU/mL Urine Color Red A Urine Appearance Cloudy Urine pH 6.0 (5.0-9.0) Ur Specific [place] 1.020 (1.005-1.025) Urine Protein 30 (1+) H (Neg-Trace) mg/dL Urine Glucose (UA) Negative (Negative) mg/dL Urine Ketones Negative (Negative) mg/dL Urine Blood Large (3+) H (Negative) Urine Nitrite Negative (Negative) Ur Leukocyte Esterase Small (1+) H (Negative) Urine RBC >20 H (0-2) /HPF Urine WBC 21-50 H (0-5) /HPF Ur Squamous Epith Cells 0-2 (0-2) /HPF Urine Bacteria 1+ (None Seen) Hyaline Casts 0-2 (0-2) /LPF Urine Test NEGATIVE (NEGATIVE) Discharge Plan Discharge Clinical Impression: Heavy menses Patient Disposition: Home, Self-Care Additional Instructions: You received a dose of an injectable medication called ketorolac (also known as Toradol). My hope is this that this will help your discomfort and the amount of bleeding. Please plan on contacting your wood v[employer] taper tomorrow. 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 Return to the emergency room if significantly worse Prescriptions: No Action cyclobenzaprine 10 mg tablet 10 mg PO TID PRN (Reason: muscle spasm) Qty: 10 0RF ibuprofen 600 mg tablet 600 mg PO Q8H PRN (Reason: pain) Qty: 14 0RF lidocaine [Lidoderm] 5 % adhesive patch,medicated 1 patch topical DAILY Qty: 15 0RF Rx Instructions: leave on most painful area for up to 12 hrs benzonatate 100 mg capsule 100 mg PO TID PRN (Reason: cough) Qty: 14 0RF benzonatate 100 mg capsule 100 mg PO TID PRN (Reason: cough) Qty: 14 0RF ketorolac 10 mg tablet 10 mg PO TID PRN (Reason: pain) 5 Days Qty: 15 0RF prednisone 20 mg tablet 20 mg PO DAILY 5 Days Qty: 5 0RF lidocaine 5 % adhesive patch,medicated 1 patch topical DAILY PRN (Reason: pain) Qty: 15 0RF Rx Instructions: leave on most painful area for up to 12 hrs Referrals: Sandra Bustamante. Caren Oliveira [Provider Group] (menorrhagia, headache) Stand Alone Forms: Work/School Release Interventions: ED Discharge Assessment Last Done: 07/11/23 04:09 Discharge Date/Time: 07/11/23 00:55
[2023-07-10 18:43] LABS: MANUAL DIFF FLAG NO
[2023-07-10 18:51] LABS: Appearance Urine Cloudy; Color Urine Red; Glucose Urine UA Negative (Negative); Leukocyte Esterase Urine Small (1+) (Negative); Nitrite Urine Negative (Negative); UMIC TRIGGER UACC YES; UPreg QC Valid YES; Urine Blood Large (3+) (Negative); Urine Ketones Negative (Negative); Urine Pregnancy NEGATIVE (NEGATIVE); Urine Protein 30 (1+) mg/dL (Neg-Trace)
[2023-07-10 18:52] LABS: Bacteria Urine 1+ (None Seen); Hyaline Casts Urine 0-2 /LPF (0-2); RBC Urine >20 /HPF (0-2); Squamous Epithelial Cell Urine 0-2 /HPF (0-2); UACC Culture Trigger YES; WBC Urine 21-50 /HPF (0-5)
[2023-07-10 18:56] LABS: Prothrombin Time 12.2 SEC (11.1-13.3)
[2023-07-10 19:03] LABS: Alanine Aminotransferase 50 U/L (0-31); Alkaline Phosphatase 75 U/L (39-117); Anion Gap 13 (12-20); Aspartate Amino Transferase 40 U/L (5-31); Bilirubin Direct 0.1 mg/dL (0.0-0.5); Bilirubin Total 0.3 mg/dL (0.0-1.0); Blood Urea Nitrogen 10 mg/dL (9-16); Calcium 9.2 mg/dL (8.4-10.2); Carbon Dioxide 26 mmol/L (22-29); Chloride 106 mmol/L (96-108); Creatinine Clr Calc Pharmacy 119.4; Estimated Glomerular Filt Rate > 60; Glucose Random 125 mg/dL (60-115); Potassium 3.5 mmol/L (3.3-5.1); Sodium 141 mmol/L (135-145); Total Protein 8.3 g/dL (6.5-8.0)
[2023-07-10 19:05] LABS: Basophils Absolute Auto 0.1 X10*3/uL (0.0-0.2); Basophils Percent Auto 0.9 % (0-2); Eosinophils Absolute Auto 0.2 X10*3/uL (0.0-0.4); Eosinophils Percent Auto 2.3 % (0-4); Hematocrit 41.8 % (37.0-47.0); Hemoglobin 13.2 g/dl (12.0-16.0); Imm Gran Abs Auto 0.04 X10*3/uL (0.00-0.03); Imm Gran Pct Auto 0.6 % (0.0-0.4); Lymphocytes Absolute Auto 1.9 X10*3/uL (1.2-4.9); Lymphocytes Percent Auto 27.1 % (20-40); Mean Corpuscular HGB Conc 31.6 g/dl (31.0-35.0); Mean Corpuscular Hemoglobin 24.8 pg (27.0-33.0); Mean Corpuscular Volume 78.4 fL (80.0-98.0); Mean Platelet Volume 10.8 fL (9.4-12.3); Monocytes Absolute Auto 0.6 X10*3/uL (0.1-1.2); Monocytes Percent Auto 8.1 % (2-11); Neutrophils Absolute Auto 4.3 x10*3/uL (2.0-8.3); Platelet Count 242 X10*3/uL (160-400); Red Blood Count 5.33 X10*6/uL (4.20-5.50)
[2023-07-10 19:11] LABS: HCG Quantitative < 2 mIU/mL
[2023-07-10 21:05] VITALS: BP 142/84; PULSE 90; RESP 20; TEMP 36.7; O2SAT 99
[2023-07-10 22:09] VITALS: BP 140/82; PULSE 90; RESP 20; TEMP 36.8; O2SAT 99
[2023-07-10] MEDS: Acetaminophen 325 MG TABLET 975 MG PO (22:56)
[2023-07-10] MEDS: Ketorolac Tromethamine 60 MG/2 ML VIAL IM (22:56)
--- NOTE | 2023-07-10 23:02 | PC.NURSE ---
pt medicated per MAR
== END 2023-07-11 00:55 | disposition home or self-care (01) ==
PROVIDERS: Nurse Practitioner Family; Emergency Provider Emergency Medicine
DX: N92.0 Excessive and frequent menstruation with regular cycle (principal); R10.30 Lower abdominal pain, unspecified
CPT/HCPCS: 36415; 80048; 80076; 81001; 81025; 84702; 85025; 85610; 87086; 96372; 99284; J1885

== ENCOUNTER 2023-08-17 16:57 | Emergency (ER) | payer SELFPAY ==
[2023-08-17 17:17] VITALS: BP 163/87; PULSE 106; RESP 20; TEMP 35.9; O2SAT 100; BMI 49.1
--- NOTE | 2023-08-17 17:17 | ED.BACK ---
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 lately radiating to the right leg no bowel incontinence no bladder involvement patient ambulatory as such no fall or trauma patient was seen 2 months ago x-ray of the back was normal Related Data Previous Rx's Medication Instructions Recorded cyclobenzaprine 10 mg tablet 10 mg PO TID PRN muscle spasm #10 03/06/21 tabs ibuprofen 600 mg tablet 600 mg PO Q8H PRN pain #14 tabs 03/06/21 lidocaine 5 % topical patch 1 patch topical DAILY #15 ea 03/06/21 (Lidoderm) benzonatate 100 mg capsule 100 mg PO TID PRN cough #14 caps 11/26/21 benzonatate 100 mg capsule 100 mg PO TID PRN cough #14 caps 05/20/22 ketorolac 10 mg tablet 10 mg PO TID PRN pain 5 days #15 07/04/23 tabs lidocaine 5 % topical patch 1 patch topical DAILY PRN pain #15 07/04/23 ea prednisone 20 mg tablet 20 mg PO DAILY 5 days #5 tabs 07/04/23 cyclobenzaprine 10 mg tablet 10 mg PO Q8H #20 tabs 08/17/23 tramadol 50 mg tablet 50 mg PO Q6H PRN pain #20 tabs 08/17/23 Allergies Allergy/AdvReac Type Severity Reaction Status Date / Time morphine [MORPHINE] Allergy Unknown I DONT Verified 08/17/23 17:20 KNOW WHAT IM SAYING Review of Systems Review of Systems: Yes all other systems are reviewed and are negative [facility] Past Medical History Medical History Morbid obesity Social History Social History Advance Directives: No Advance Directives Information Provided: No Physical Exam Vital Signs: Vital Signs: Last Vital Signs Temp 96.7 F L 08/17/23 17:17 Pulse 106 H 08/17/23 17:17 Resp 20 08/17/23 17:17 BP 163/87 H 08/17/23 17:17 Pulse Ox 100 08/17/23 17:17 O2 Del Method Room Air 08/17/23 17:17 BMI result Body Mass Index 49.1 Appearance: Alert. Oriented X3. No acute distress. Neck: Normal inspection. Neck supple. CVS: Normal heart rate and rhythm. Pulses normal. Respiratory: No respiratory distress. Equal air entry bilateral, Abdomen: Soft and nontender. Bowel sounds are present, no mass palpable, no CVA tenderness Skin: Skin warm and dry. Normal skin color. Normal skin turgor. Extremities: No lower extremity edema. No calf tenderness back: Diffuse lower back tenderness SLR negative bilaterally neurovascular intact no focal midline tenderness Neuro: Oriented X 3. No motor deficit. No sensory deficit.No cerebellar signs , cranial nerves II-XII intact Course Course Course Narrative: This is an RME: Additional HPI, ROS, PE not included below will be deferred to primary provider. Patient is a 32-year-old female who presents emergency department for evaluation of Diffuse lower back pain radiating to the right lower extremity, progressive worsening, intermittent numbness. Reports that she was seen here in the past similar symptoms, she was given a prescription for prednisone, Toradol, lidocaine patch which she states relieved her pain a little bit. She did not follow-up with her primary care provider in regards to this. 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 Denies any bladder bowel dysfunction. Denies any urogenital symptoms. Took ibuprofen at 15:30 Medications Administered Discontinued Medications Generic Name Dose Route Start Last Admin Trade Name Javi PRN Reason Stop Dose Admin Cyclobenzaprine HCl 10 mg 08/17/23 21:37 08/17/23 21:57 Cyclobenzaprine Hcl 10 Mg Tablet PO 08/17/23 21:38 10 mg ONCE ONE Administration Tramadol HCl 50 mg 08/17/23 21:37 08/17/23 21:57 Tramadol Hcl 50 Mg Tablet PO 08/17/23 21:38 50 mg ONCE ONE Administration Medical Decision Making Medical Decision Making [facility] Narrative: Patient with chronic low back pain secondary to work condition short height and overweight previous x-rays without any significant changes patient advised follow with physical therapy/yoga. Lab Data Labs: Lab Results 08/17/23 Range/Units 21:18 Urine Color Yellow Urine Appearance Cloudy Urine pH 5.5 (5.0-9.0) Ur Specific [place] 1.025 (1.005-1.025) Urine Protein Trace (Neg-Trace) mg/dL Urine Glucose (UA) Negative (Negative) mg/dL Urine Ketones Negative (Negative) mg/dL Urine Blood Negative (Negative) Urine Nitrite Negative (Negative) Ur Leukocyte Esterase Negative (Negative) Urine Test NEGATIVE (NEGATIVE) Discharge Plan Discharge Clinical Impression: Strain of lumbar region Patient Disposition: Home, Self-Care Instructions: Low Back Strain (ED) Additional Instructions: Follow up with physical therapy for stretching exercises for your back Try to reduce weight Pain medication and muscle relaxants as prescribed Contin?e con fisioterapia para ejercicios de estiramiento de la espalda. Intenta reducir peso Medicamentos para el dolor y relajantes musculares seg?n lo recetado. Prescriptions: New cyclobenzaprine 10 mg tablet 10 mg PO Q8H Qty: 20 0RF tramadol 50 mg tablet 50 mg PO Q6H PRN (Reason: pain) Qty: 20 0RF No Action cyclobenzaprine 10 mg tablet 10 mg PO TID PRN (Reason: muscle spasm) Qty: 10 0RF ibuprofen 600 mg tablet 600 mg PO Q8H PRN (Reason: pain) Qty: 14 0RF lidocaine [Lidoderm] 5 % adhesive patch,medicated 1 patch topical DAILY Qty: 15 0RF Rx Instructions: leave on most painful area for up to 12 hrs benzonatate 100 mg capsule 100 mg PO TID PRN (Reason: cough) Qty: 14 0RF benzonatate 100 mg capsule 100 mg PO TID PRN (Reason: cough) Qty: 14 0RF ketorolac 10 mg tablet 10 mg PO TID PRN (Reason: pain) 5 Days Qty: 15 0RF prednisone 20 mg tablet 20 mg PO DAILY 5 Days Qty: 5 0RF lidocaine 5 % adhesive patch,medicated 1 patch topical DAILY PRN (Reason: pain) Qty: 15 0RF Rx Instructions: leave on most painful area for up to 12 hrs Stand Alone Forms: Work/School Release Discharge Date/Time: 08/17/23 22:32 Print Language: Pashto
[2023-08-17 21:27] LABS: Appearance Urine Cloudy; Color Urine Yellow; Glucose Urine UA Negative (Negative); Leukocyte Esterase Urine Negative (Negative); Nitrite Urine Negative (Negative); PH 5.5 (5.0-9.0); Specific Gravity - Urine 1.025 (1.005-1.025); Urine Blood Negative (Negative); Urine Ketones Negative (Negative); Urine Protein Trace mg/dL (Neg-Trace)
[2023-08-17 21:39] LABS: UPreg QC Valid YES; Urine Pregnancy NEGATIVE (NEGATIVE)
[2023-08-17] MEDS: traMADoL HCL 50 MG TABLET PO (21:57)
[2023-08-17] MEDS: Cyclobenzaprine HCl 10 MG TABLET PO (21:57)
== END 2023-08-17 22:32 | disposition home or self-care (01) ==
PROVIDERS: Nurse Practitioner Family; Emergency Provider Internal Medicine
DX: S39.012A Strain of muscle, fascia and tendon of lower back, initial encounter (principal); X58.XXXA Exposure to other specified factors, initial encounter; Y93.9 Activity, unspecified; Y92.9 Unspecified place or not applicable; Y99.9 Unspecified external cause status
CPT/HCPCS: 81003; 81025; 99283

== ENCOUNTER 2023-09-05 16:10 | Emergency (ER) | payer SELFPAY ==
--- NOTE | ~2023-09-05 | XR_ITS ---
EXAMINATION: XR CHEST CLINICAL INFORMATION: Cough, congestion. COMPARISON: Chest radiograph 05/20/2022. TECHNIQUE: 2 views of the chest were obtained. FINDINGS: The lungs are mildly hypoexpanded. No focal consolidation. No pleural effusion, edema or pneumothorax. The cardiomediastinal silhouette is within normal limits. No acute osseous abnormality. XR/XR chest 2V IMPRESSION: No acute pulmonary disease.
[2023-09-05 16:58] VITALS: BP 153/77; PULSE 120; RESP 20; TEMP 36.9; O2SAT 98; BMI 48.5
--- NOTE | 2023-09-05 17:01 | ED.URI ---
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 Patient nontoxic appearing, no sick contacts, no recent travel, no fever, chills, no CP, no SOB. Patient also complaining of frequency urination and dysuria currently patient having her menstruation. Related Data Previous Rx's Medication Instructions Recorded cyclobenzaprine 10 mg tablet 10 mg PO TID PRN muscle spasm #10 03/06/21 tabs ibuprofen 600 mg tablet 600 mg PO Q8H PRN pain #14 tabs 03/06/21 lidocaine 5 % topical patch 1 patch topical DAILY #15 ea 03/06/21 (Lidoderm) benzonatate 100 mg capsule 100 mg PO TID PRN cough #14 caps 11/26/21 benzonatate 100 mg capsule 100 mg PO TID PRN cough #14 caps 05/20/22 ketorolac 10 mg tablet 10 mg PO TID PRN pain 5 days #15 07/04/23 tabs lidocaine 5 % topical patch 1 patch topical DAILY PRN pain #15 07/04/23 ea prednisone 20 mg tablet 20 mg PO DAILY 5 days #5 tabs 07/04/23 cyclobenzaprine 10 mg tablet 10 mg PO Q8H #20 tabs 08/17/23 tramadol 50 mg tablet 50 mg PO Q6H PRN pain #20 tabs 08/17/23 amoxicillin 875 mg-potassium 1 tab PO BID #14 tabs 09/06/23 clavulanate 125 mg tablet Allergies Allergy/AdvReac Type Severity Reaction Status Date / Time morphine [MORPHINE] Allergy Unknown I DONT Verified 08/17/23 17:20 KNOW WHAT IM SAYING Review of Systems Review of Systems: All other systems are reviewed and are negative Constitutional: Reports as per HPI and Reports no additional constitutional complaints Eyes: Reports as per HPI and Reports no additional eye complaints Reports system reviewed and no additional complaints, except as documented Cardiovascular: Reports as per HPI and Reports no additional cardiovascular complaints Respiratory: Reports as per HPI and Reports no additional respiratory complaints Gastrointestinal: Reports as per HPI and Reports no additional gastrointestinal complaints Genitourinary: Reports no additional female genitourinary complaints Musculoskeletal: Reports no additional musculoskeletal complaints Skin/Breast: Reports system reviewed and no additional complaints, except as docu Psychiatric: Reports no additional psychiatric complaints Endocrine: Reports no additional endocrine complaints Hematologic/Lymphatic: Reports no additional hematologic/lymphatic complaints Allergic/Immunologic: Reports no additional allergic/immunologic complaints Reports system reviewed and no additional complaints, except as documented and Reports Abnormal speech present [facility] Past Medical History Medical History Morbid obesity Social History Social History Alcohol intake: current Alcohol intake frequency: holidays/special occasions only Smoked in Last 30 Days: No Use of substances other than those prescribed or required for medical reasons: No Advance Directives: No Advance Directives Information Provided: No Patient : No Physical Exam Vital Signs: Vital Signs: Last Vital Signs Temp 98.7 F 09/05/23 22:31 Pulse 114 H 09/05/23 22:31 Resp 17 09/05/23 20:30 BP 137/99 H 09/05/23 22:31 Pulse Ox 97 09/05/23 22:31 O2 Del Method Room Air 09/05/23 22:31 BMI result Body Mass Index 48.5 Vital signs have been reviewed and appear to be correct. Blood pressure elevated. Heart rate normal. Respiratory rate normal. Temperature normal. Oxygen saturation normal. Appearance: Alert. Oriented X3. No acute distress. Head: Normal external exam. Normocephalic. Atraumatic. No Gannon signs noted. No raccoon eyes noted Eyes: PERRLA. EOMI. Conjunctiva and sclera normal. Eyelids normal. ENT: TM's Normal. Pharynx normal. Uvula midline. Moist mucous membranes. No trismus noted. No drooling noted. No muffled voice noted. Neck: Normal inspection. Neck supple. FROM. No adenopathy. Thyroid Normal. No meningeal signs. No neck mass noted. CVS: Normal heart rate and rhythm. Heart sound normal. No murmurs noted. Pulses normal throughout. Respiratory: No respiratory distress. Painless inspiration. Breath sounds normal. No wheezes/rales/rhonchi noted. Chest nontender. No accessory muscle usage noted or decreased air movement noted. Abdomen: Soft and nontender. Bowel sounds normal in all 4 quadrants. No distention noted. No organomegaly noted. No visible injury noted. Back: No CVA tenderness. Full range of motion noted. Skin: Skin warm and dry. Normal skin color. Normal skin turgor. No rashes/lesions/lacerations noted. Extremities: No lower extremity edema. Extremities exhibit normal range of motion. Extremities nontender. Neuro: Oriented X 3. Cranial nerve exam: II-XII are grossly intact No motor deficit. No sensory deficit. Reflexes normal. Course Course Course Narrative: This is an RME: Additional HPI, ROS, PE not included below will be deferred to primary provider. This is a [id number]-female, presenting to the emergency department complaints of congestion, body aches fevers, abdominal pain, nausea since yesterday. Patient nontoxic appearing tachycardic at 120. no chest pain Plan: Viral swabs, EKG due to tachycardia Reevaluation(s) Reevaluation #1: 32-year-old female came in with generalized body ache, congestion coughing, patient is negative for RSV, flu, and COVID-19 infection, unremarkable chest x-ray, labs are unremarkable., viral syndrome is a likely diagnosis, will reassure and discharge. Tachycardia is likely due to viral syndrome and has improved in the ED, EKG is not concern of abnormal dysrhythmia. Time: 23:20 Reevaluation #2: Positive for strep pharyngitis will consider amoxicillin. Time: 00:04 Medications Administered Discontinued Medications Generic Name Dose Route Start Last Admin Trade Name Aidenq PRN Reason Stop Dose Admin Amoxicillin/Clavulanate Potassium 875 mg 09/06/23 00:11 09/06/23 00:25 Amoxicillin/Potassium Clav 875 Mg Tablet PO 09/06/23 00:12 875 mg ONCE ONE Administration Medical Decision Making Differential Diagnosis Differential Diagnoses: The differential diagnosis associated with the presentation includes (RSV, COVID-19 infection, influenza, strep pharyngitis, electrolytes derangement, severe anemia, UTI, pyelonephritis, severe anemia.) Admission/Observation Consideration of admission/observation: Escalation of care including admission/observation considered Lab Data MDM Lab Attestation statement: I reviewed the patient's lab results. 09/05/23 22:29 09/05/23 22:29 Labs: Lab Results 09/05/23 09/05/23 09/05/23 Range/Units 17:20 22:29 22:59 WBC 7.1 (4.8-10.8) X10*3/uL RBC 5.69 H (4.20-5.50) X10*6/uL Hgb 14.0 (12.0-16.0) g/dl Hct 44.2 (37.0-47.0) % MCV 77.7 L (80.0-98.0) fL MCH 24.6 L (27.0-33.0) pg MCHC 31.7 (31.0-35.0) g/dl RDW 13.9 (11.0-16.0) % Plt Count 268 (160-400) X10*3/uL MPV 10.2 (9.4-12.3) fL Immature Gran % (Auto) 0.3 (0.0-0.4) % Neut % (Auto) 61.4 (45-73) % Lymph % (Auto) 26.3 (20-40) % Casey % (Auto) 9.4 (2-11) % Eos % (Auto) 1.8 (0-4) % Baso % (Auto) 0.8 (0-2) % Lymph # (Auto) 1.9 (1.2-4.9) X10*3/uL Casey # (Auto) 0.7 (0.1-1.2) X10*3/uL Eos # (Auto) 0.1 (0.0-0.4) X10*3/uL Baso # (Auto) 0.1 (0.0-0.2) X10*3/uL Abs Immat Gran (auto) 0.02 (0.00-0.03) X10*3/uL Absolute Neuts (auto) 4.4 (2.0-8.3) x10*3/uL Absolute Nucleated RBC 0.000 (0.0-0.012) X10*3/uL Nucleated RBC % (auto) 0.0 (0.0-0.2) /100WBC Sodium 139 (135-145) mmol/L Potassium 4.2 (3.3-5.1) mmol/L Chloride 107 (96-108) mmol/L Carbon Dioxide 24 (22-29) mmol/L Anion Gap 12 (12-20) BUN 15 (9-16) mg/dL Creatinine 0.74 (0.5-1.4) mg/dL Estim Creat Clear Calc 119.7 Estimated GFR > 60 Random Glucose 118 H (60-115) mg/dL Calcium 9.5 (8.4-10.2) mg/dL Total Bilirubin 0.7 (0.0-1.0) mg/dL Direct Bilirubin 0.3 (0.0-0.5) mg/dL AST 70 H (5-31) U/L ALT 92 H (0-31) U/L Alkaline Phosphatase 81 (39-117) U/L Troponin I High Sens < 2.7 (<3.5-17.0) ng/L Total Protein 9.0 H (6.5-8.0) g/dL Albumin 4.4 (3.5-5.0) g/dL Urine Color Yellow Urine Appearance Cloudy Urine pH 5.5 (5.0-9.0) Ur Specific [place] >= 1.030 H (1.005-1.025) Urine Protein 100 (2+) H (Neg-Trace) mg/dL Urine Glucose (UA) Negative (Negative) mg/dL Urine Ketones Negative (Negative) mg/dL Urine Blood Large (3+) H (Negative) Urine Nitrite Negative (Negative) Ur Leukocyte Esterase Negative (Negative) Urine RBC >20 H (0-2) /HPF Urine WBC 0-5 (0-5) /HPF Ur Squamous Epith Cells 11-20 (0-2) /HPF Urine Bacteria 2+ (None Seen) Hyaline Casts 0-2 (0-2) /LPF Urine Test NEGATIVE (NEGATIVE) Influenza Type A (PCR) NEGATIVE (Negative) Influenza Type B (PCR) NEGATIVE (Negative) RSV RNA Qual (PCR) NEGATIVE (Negative) SARS-CoV-2 RNA (RT-PCR) NEGATIVE (Negative) S. pyogenes GrpA CODY Invalid (Negative) 09/05/23 Range/Units 23:48 WBC (4.8-10.8) X10*3/uL RBC (4.20-5.50) X10*6/uL Hgb (12.0-16.0) g/dl Hct (37.0-47.0) % MCV (80.0-98.0) fL MCH (27.0-33.0) pg MCHC (31.0-35.0) g/dl RDW (11.0-16.0) % Plt Count (160-400) X10*3/uL MPV (9.4-12.3) fL Immature Gran % (Auto) (0.0-0.4) % Neut % (Auto) (45-73) % Lymph % (Auto) (20-40) % Casey % (Auto) (2-11) % Eos % (Auto) (0-4) % Baso % (Auto) (0-2) % Lymph # (Auto) (1.2-4.9) X10*3/uL Casey # (Auto) (0.1-1.2) X10*3/uL Eos # (Auto) (0.0-0.4) X10*3/uL Baso # (Auto) (0.0-0.2) X10*3/uL Abs Immat Gran (auto) (0.00-0.03) X10*3/uL Absolute Neuts (auto) (2.0-8.3) x10*3/uL Absolute Nucleated RBC (0.0-0.012) X10*3/uL Nucleated RBC % (auto) (0.0-0.2) /100WBC Sodium (135-145) mmol/L Potassium (3.3-5.1) mmol/L Chloride (96-108) mmol/L Carbon Dioxide (22-29) mmol/L Anion Gap (12-20) BUN (9-16) mg/dL Creatinine (0.5-1.4) mg/dL Estim Creat Clear Calc Estimated GFR Random Glucose (60-115) mg/dL Calcium (8.4-10.2) mg/dL Total Bilirubin (0.0-1.0) mg/dL Direct Bilirubin (0.0-0.5) mg/dL AST (5-31) U/L ALT (0-31) U/L Alkaline Phosphatase (39-117) U/L Troponin I High Sens (<3.5-17.0) ng/L Total Protein (6.5-8.0) g/dL Albumin (3.5-5.0) g/dL Urine Color Urine Appearance Urine pH (5.0-9.0) Ur Specific [place] (1.005-1.025) Urine Protein (Neg-Trace) mg/dL Urine Glucose (UA) (Negative) mg/dL Urine Ketones (Negative) mg/dL Urine Blood (Negative) Urine Nitrite (Negative) Ur Leukocyte Esterase (Negative) Urine RBC (0-2) /HPF Urine WBC (0-5) /HPF Ur Squamous Epith Cells (0-2) /HPF Urine Bacteria (None Seen) Hyaline Casts (0-2) /LPF Urine Test (NEGATIVE) Influenza Type A (PCR) (Negative) Influenza Type B (PCR) (Negative) RSV RNA Qual (PCR) (Negative) SARS-CoV-2 RNA (RT-PCR) (Negative) S. pyogenes GrpA CODY Positive A (Negative) Independent Interpretation I performed an independent interpretation of an: EKG (Sinus tachycardia at 01:21, left axis deviation, normal intervals, no ST-T changes, no significant change from previous EKG.) and Plain X-Ray (Chest: No acute intrathoracic pathology.) Radiology Impression Discussion of test interpretation with radiology: I have reviewed the radiologist's reading. Discharge Plan Discharge Clinical Impression: Acute viral syndrome, Pharyngitis Patient Disposition: Home, Self-Care Instructions: Pharyngitis (ED), Viral Syndrome (ED) Prescriptions: New amoxicillin-pot clavulanate 875-125 mg tablet 1 tab PO BID Qty: 14 0RF No Action cyclobenzaprine 10 mg tablet 10 mg PO TID PRN (Reason: muscle spasm) Qty: 10 0RF ibuprofen 600 mg tablet 600 mg PO Q8H PRN (Reason: pain) Qty: 14 0RF lidocaine [Lidoderm] 5 % adhesive patch,medicated 1 patch topical DAILY Qty: 15 0RF Rx Instructions: leave on most painful area for up to 12 hrs benzonatate 100 mg capsule 100 mg PO TID PRN (Reason: cough) Qty: 14 0RF benzonatate 100 mg capsule 100 mg PO TID PRN (Reason: cough) Qty: 14 0RF ketorolac 10 mg tablet 10 mg PO TID PRN (Reason: pain) 5 Days Qty: 15 0RF prednisone 20 mg tablet 20 mg PO DAILY 5 Days Qty: 5 0RF lidocaine 5 % adhesive patch,medicated 1 patch topical DAILY PRN (Reason: pain) Qty: 15 0RF Rx Instructions: leave on most painful area for up to 12 hrs cyclobenzaprine 10 mg tablet 10 mg PO Q8H Qty: 20 0RF tramadol 50 mg tablet 50 mg PO Q6H PRN (Reason: pain) Qty: 20 0RF Stand Alone Forms: Work/School Release
--- NOTE | 2023-09-05 17:03 | ECG_ITS ---
Test Reason : tachycardic Blood Pressure : / mmHG Vent. Rate : 121 BPM Atrial Rate : 121 BPM P-R Int : 122 ms QRS Dur : 078 ms QT Int : 324 ms P-R-T Axes : 015 -15 037 degrees QTc Int : 460 ms Sinus tachycardia Minimal voltage criteria for LVH, may be normal variant ( R in aVL ) Borderline ECG When compared with ECG of 26-NOV-2021 01:35, No significant change was found Referred By: Rajwinder Cross Electronically Signed By:SEHLLEY DANIELLE MD
--- NOTE | 2023-09-05 17:22 | MHC.EDTECH ---
This pct attempted to obtain a strep swab but the patients is not allowing me to swab. RN Aware
[2023-09-05 18:05] LABS: Influenza A PCR NEGATIVE (Negative); Influenza B PCR NEGATIVE (Negative); Resp Syncy Virus RNA Qual PCR NEGATIVE (Negative); SARS COV2 PCR INHOUSE NEGATIVE (Negative)
[2023-09-05 20:30] VITALS: BP 136/91; PULSE 123; RESP 17; TEMP 36.6; O2SAT 98
--- NOTE | 2023-09-05 20:37 | PC.NURSE ---
on reassess from , deonte garcía notified pt states she has had chest pain for 3 days. ecg taken previously, hr remains 120, ricky clemons aware.
[2023-09-05 22:31] VITALS: BP 137/99; PULSE 114; TEMP 37.1; O2SAT 97
[2023-09-05 22:35] LABS: MANUAL DIFF FLAG NO
[2023-09-05 22:37] LABS: Basophils Absolute Auto 0.1 X10*3/uL (0.0-0.2); Basophils Percent Auto 0.8 % (0-2); Eosinophils Absolute Auto 0.1 X10*3/uL (0.0-0.4); Eosinophils Percent Auto 1.8 % (0-4); Hematocrit 44.2 % (37.0-47.0); Imm Gran Abs Auto 0.02 X10*3/uL (0.00-0.03); Imm Gran Pct Auto 0.3 % (0.0-0.4); Lymphocytes Absolute Auto 1.9 X10*3/uL (1.2-4.9); Lymphocytes Percent Auto 26.3 % (20-40); Mean Corpuscular HGB Conc 31.7 g/dl (31.0-35.0); Mean Corpuscular Hemoglobin 24.6 pg (27.0-33.0); Mean Corpuscular Volume 77.7 fL (80.0-98.0); Mean Platelet Volume 10.2 fL (9.4-12.3); Monocytes Absolute Auto 0.7 X10*3/uL (0.1-1.2); Monocytes Percent Auto 9.4 % (2-11); Neutrophils Absolute Auto 4.4 x10*3/uL (2.0-8.3); Neutrophils Percent Auto 61.4 % (45-73); Platelet Count 268 X10*3/uL (160-400); Red Blood Count 5.69 X10*6/uL (4.20-5.50); Red Cell Distribution Width 13.9 % (11.0-16.0); White Blood Count 7.1 X10*3/uL (4.8-10.8)
[2023-09-05 22:56] LABS: Alanine Aminotransferase 92 U/L (0-31); Albumin Level 4.4 g/dL (3.5-5.0); Alkaline Phosphatase 81 U/L (39-117); Anion Gap 12 (12-20); Aspartate Amino Transferase 70 U/L (5-31); Bilirubin Direct 0.3 mg/dL (0.0-0.5); Bilirubin Total 0.7 mg/dL (0.0-1.0); Blood Urea Nitrogen 15 mg/dL (9-16); Calcium 9.5 mg/dL (8.4-10.2); Carbon Dioxide 24 mmol/L (22-29); Chloride 107 mmol/L (96-108); Creatinine Clr Calc Pharmacy 119.7; Estimated Glomerular Filt Rate > 60; Glucose Random 118 mg/dL (60-115); Potassium 4.2 mmol/L (3.3-5.1); Sodium 139 mmol/L (135-145)
[2023-09-05 23:04] LABS: Troponin-I High Sensitivity < 2.7 ng/L (<3.5-17.0)
[2023-09-05 23:06] LABS: Appearance Urine Cloudy; Color Urine Yellow; Glucose Urine UA Negative (Negative); Leukocyte Esterase Urine Negative (Negative); Nitrite Urine Negative (Negative); PH 5.5 (5.0-9.0); Specific Gravity - Urine >= 1.030 (1.005-1.025); UMIC TRIGGER UACC YES; Urine Blood Large (3+) (Negative); Urine Ketones Negative (Negative); Urine Protein 100 (2+) mg/dL (Neg-Trace)
[2023-09-05 23:07] LABS: UPreg QC Valid YES; Urine Pregnancy NEGATIVE (NEGATIVE)
[2023-09-05 23:09] LABS: Bacteria Urine 2+ (None Seen); Hyaline Casts Urine 0-2 /LPF (0-2); RBC Urine >20 /HPF (0-2); WBC Urine 0-5 /HPF (0-5)
[2023-09-05 23:15] LABS: IDNOW Serial# 08D9AD1C; Strep A Nucleic Acid Invalid (Negative)
[2023-09-05 23:56] LABS: IDNOW Serial# 08D9AD1C; Strep A Nucleic Acid Positive (Negative)
[2023-09-06] MEDS: Amoxicillin/Potassium Clav 875 MG TABLET PO (00:25)
[2023-09-06 02:07] VITALS: BP 142/92; PULSE 108; RESP 18; TEMP 36.9; O2SAT 98
== END 2023-09-06 02:08 | disposition home or self-care (01) ==
PROVIDERS: Physician Assistant Medical; Emergency Provider Emergency Medicine
DX: B34.9 Viral infection, unspecified (principal); J02.0 Streptococcal pharyngitis; R35.0 Frequency of micturition; R30.0 Dysuria
CPT/HCPCS: 0241U; 36415; 71046; 80048; 80076; 81001; 81025; 84484; 85025; 87651; 93005; 99283; 99285

== ENCOUNTER → 2023-09-05 17:03 | Outpatient (BNV) | payer SELFPAY | PROVIDERS: Emergency Provider Emergency Medicine; Visit Provider Internal Medicine Cardiovascular Disease | DX: R00.0 Tachycardia, unspecified (principal) | CPT/HCPCS: 93010 ==